=== PATIENT | male | born 1960 | race Caucasian/White ===

== ENCOUNTER 2017-07-28 16:49 | Emergency (ER) | payer OTHER ==
[2017-07-28 17:05] VITALS: BP 137/93; PULSE 64; RESP 16; TEMP 98.2; O2SAT 95
--- NOTE | 2017-07-28 19:00 | EDPHY ---
H & P Time Seen by Provider: 07/28/17 18:45 HPI/ROS: CHIEF COMPLAINT: Left eye flashes and floaters HISTORY OF PRESENT ILLNESS: 56-year-old male arrives via private vehicle. Patient describes that earlier this morning approximately 10:00 a.m. He was at work, working his computer he noticed flashing lights out of his left eye which lasted approximately 10-15 minutes and resolved. Later on today he noticed black floaters in his left visual field. He performed online research and came to the ER for evaluation. He denies visual acuity changes, denies visual field cuts, denies ocular pain, denies headache, denies exposure to high speed projectiles. Is PHYSICAL EXAM (Prior to examination, patient consented to physical exam, hands were washed and my usual and customary physical exam procedures followed) 1) GENERAL: Well-developed, well-nourished, alert and oriented. Appears to be in no acute distress. Smiling, shakes my hand appears well. 2) HEAD: Normocephalic 3) HEENT: sclera anicteric 4) LUNGS: Breathing comfortably. [5) OCULAR EXAM: Visual Acuity: noted from Nurse's notes. Pupils:equal round and reactive to light EOMI Lids: no edema or swelling, upper and lower lids were everted and no foreign bodies were visualized, Skin: no proptosis, no periorbital erythema or swelling, no vesicles, no pain with extraocular movements. Conjunctivae: not injected, no discharge, negative Greg test. Funduscopic examination is grossly unremarkable. Anterior chamber:normal, no hyphema or hypopyon. Pressure=16 Smoking Status: Never smoked Constitutional: Initial Vital Signs Temperature (C) 36.8 C 07/28/17 17:02 Heart Rate 64 07/28/17 17:02 Respiratory Rate 16 07/28/17 17:02 Blood Pressure 137/93 H 07/28/17 17:02 O2 Sat (%) 95 07/28/17 17:02 O2 Delivery Mode Room Air Allergies/Adverse Reactions: No Known Allergies Allergy (Unverified 07/28/17 17:02) Home Medications: Medication Instructions Recorded NK [No Known Home Meds] 07/28/17 MDM/Departure - MDM ED Course/Re-evaluation: 7:00 p.m. Care of patient under supervision of secondary supervising physician Dr Day . Doubt acute closed angle glaucoma, doubt retinal detachment. 7:07 p.m.: Phone consultation with on-call ophthalmology Dr. Angel Hinds. Patient will follow up in the office tomorrow. I explained this to the patient and he feels comfortable with plan and agrees to this plan. Usual customary ophthalmological precautions instructions provided - Depart Disposition: Home, Routine, Self-Care Clinical Impression: Vitreous floaters of left eye Condition: Good Instructions: Visual Floaters (ED) Referrals: Angel Hinds MD [Medical Doctor] - 1 day without fail (Dr. Angel Hinds is an refrigerating engineer)
== END 2017-07-28 19:45 | disposition home or self-care (01) ==
DX: H43.392 Other vitreous opacities, left eye (principal)